=== PATIENT | male | born 1990 | race African-American/Black ===

== ENCOUNTER 2017-09-25 04:30 | Inpatient (IN) | payer MEDICARE ==
--- NOTE | 2017-09-25 05:01 | ED ---
General Adult HPI - General Source: patient, police, RN notes reviewed Mode of arrival: ambulatory Limitations: altered mental status <Jorden Barba - Last Filed: 09/25/17 06:35> <Jaden Pantoja - Last Filed: 09/25/17 10:02> - General Chief complaint: Psychiatric Symptoms Stated complaint: Petition Time Seen by Provider: 09/25/17 04:40 - History of Present Illness Initial comments: Patient is a pleasant 26-year-old male brought to the emergency department with police escort and petition. Patient was found walking on the freeway. Patient states he walked here from [place] a couple of days ago to give his grandmother flu medicine. Patient states he walked here and took an hour or 2 to get here. Patient states he was walking back home. Patient is unclear where he is at this point. Patient also previously told the officer that he flew here from [place]. Patient is unclear last time he bathed or ate food. Patient states he has not been on medication for around a year however is unclear why he was on a. Patient does not believe he has a history of psychiatric problems. Patient denies any history of head trauma. Patient denies any physical complaints. No hallucinations. No suicidal or homicidal thoughts. No drug use. No alcohol use. (Jorden Barba) - Related Data Home Medications Medication Instructions Recorded Confirmed No Known Home Medications [No 09/25/17 09/25/17 Known Home Medications] Allergies Allergy/AdvReac Type Severity Reaction Status Date / Time No Known Allergies Allergy Verified 09/25/17 07:58 Review of Systems ROS Other: All systems not noted in ROS Statement are negative. Constitutional: Denies: fever Eyes: Denies: eye pain ENT: Denies: ear pain Respiratory: Denies: cough Cardiovascular: Denies: chest pain Endocrine: Denies: fatigue Gastrointestinal: Denies: abdominal pain Genitourinary: Denies: dysuria Musculoskeletal: Denies: back pain Skin: Denies: rash Neurological: Denies: weakness <Jorden Barba - Last Filed: 09/25/17 06:35> ROS Other: All systems not noted in ROS Statement are negative. <Jaden Pantoja - Last Filed: 09/25/17 10:02> ROS Statement: Those systems with pertinent positive or pertinent negative responses have been documented in the HPI. Past Medical History Past Medical History: No Reported History History of Any Multi-Drug Resistant Organisms: None Reported Past Surgical History: Bowel Resection Past Psychological History: No Psychological Hx Reported Smoking Status: Current every day smoker Past Alcohol Use History: None Reported Past Drug Use History: None Reported <Jorden Barba - Last Filed: 09/25/17 06:35> General Exam Limitations: no limitations General appearance: alert, other (Poor hygiene) Head exam: Present: atraumatic Eye exam: Present: normal appearance, PERRL ENT exam: Present: normal oropharynx Neck exam: Present: normal inspection Respiratory exam: Present: normal lung sounds bilaterally Cardiovascular Exam: Present: regular rate, normal rhythm GI/Abdominal exam: Present: soft. Absent: tenderness Extremities exam: Present: normal inspection Neurological exam: Present: alert, altered, CN II-XII intact, normal gait. Absent: motor sensory deficit Expanded Patient oriented to: Present: person. Absent: place, time (Patient needs to look at the board and the room to determine day and year.) Cranial nerves: EOM's Intact: Normal Motor strength exam: RUE: 5, LUE: 5, RLE: 5, LLE: 5 Psychiatric exam: Present: normal affect, normal mood Skin exam: Present: normal color. Absent: rash <Jorden Barba - Last Filed: 09/25/17 06:35> Vital Signs 09/25/17 04:32 Temperature 97.5 F L Pulse Rate 109 H Respiratory 20 Rate Blood Pressure 124/76 O2 Sat by Pulse 99 Oximetry Medical Decision Making - Lab Data Result diagrams: 09/25/17 05:25 09/25/17 05:25 - Radiology Data Radiology results: report reviewed (Computed tomography scan of the brain shows no acute intercranial abnormality.) <Jorden Barba - Last Filed: 09/25/17 06:35> - Lab Data Result diagrams: 09/25/17 05:25 09/25/17 05:25 <Jaden Pantoja - Last Filed: 09/25/17 10:02> - Medical Decision Making 26 male the ER for psychiatric evaluation. Patient having acute psychosis, patient is seen and evaluated by psychiatry to be admitted for psychiatric evaluation and treatment (Jaden Pantoja) - Lab Data Lab Results 09/25/17 09/25/17 09/25/17 Range/Units 05:25 05:25 06:39 WBC 9.3 (3.8-10.6) k/uL RBC 4.91 (4.30-5.90) m/uL Hgb 15.4 (13.0-17.5) gm/dL Hct 47.0 (39.0-53.0) % MCV 95.7 (80.0-100.0) fL MCH 31.4 (25.0-35.0) pg MCHC 32.8 (31.0-37.0) g/dL RDW 13.4 (11.5-15.5) % Plt Count 207 (150-450) k/uL Neutrophils % 76 % Lymphocytes % 17 % Monocytes % 5 % Eosinophils % 1 % Basophils % 0 % Neutrophils # 7.1 (1.3-7.7) k/uL Lymphocytes # 1.6 (1.0-4.8) k/uL Monocytes # 0.4 (0-1.0) k/uL Eosinophils # 0.1 (0-0.7) k/uL Basophils # 0.0 (0-0.2) k/uL Sodium 146 H (137-145) mmol/L Potassium 4.0 (3.5-5.1) mmol/L Chloride 107 (98-107) mmol/L Carbon Dioxide 27 (22-30) mmol/L Anion Gap 12 mmol/L BUN 19 (9-20) mg/dL Creatinine 0.80 (0.66-1.25) mg/dL Est GFR (MDRD) Af Amer >60 (>60 ml/min/1.73 sqM) Est GFR (MDRD) Non-Af >60 (>60 ml/min/1.73 sqM) Glucose 90 (74-99) mg/dL Calcium 10.0 (8.4-10.2) mg/dL Total Bilirubin 0.9 (0.2-1.3) mg/dL AST 37 (17-59) U/L ALT 34 (21-72) U/L Alkaline Phosphatase 80 (38-126) U/L Total Protein 7.2 (6.3-8.2) g/dL Albumin 4.4 (3.5-5.0) g/dL Urine Color Yellow Urine Appearance Clear (Clear) Urine pH 6.0 (5.0-8.0) Ur Specific [place] 1.020 (1.001-1.035) Urine Protein Negative (Negative) Urine Glucose (UA) Negative (Negative) Urine Ketones Negative (Negative) Urine Blood Negative (Negative) Urine Nitrite Negative (Negative) Urine Bilirubin Negative (Negative) Urine Urobilinogen <2.0 (<2.0) mg/dL Ur Leukocyte Esterase Negative (Negative) Urine Opiates Screen Not Detected (NotDetected) Ur Oxycodone Screen Not Detected (NotDetected) Urine Methadone Screen Not Detected (NotDetected) Ur Propoxyphene Screen Not Detected (NotDetected) Ur Barbiturates Screen Not Detected (NotDetected) U Tricyclic Antidepress Not Detected (NotDetected) Ur Phencyclidine Scrn Not Detected (NotDetected) Ur Amphetamines Screen Not Detected (NotDetected) U Methamphetamines Scrn Not Detected (NotDetected) U Benzodiazepines Scrn Not Detected (NotDetected) Urine Cocaine Screen Not Detected (NotDetected) U Marijuana (THC) Screen Not Detected (NotDetected) Serum Alcohol <10 mg/dL Disposition <Jorden Barba - Last Filed: 09/25/17 06:35> <Jaden Pantoja - Last Filed: 09/25/17 10:02> Clinical Impression: Psychosis, Acute psychosis Disposition: TRANSFER TO PSYCH HOSP/UNIT Condition: Fair
[2017-09-25 05:37] LABS: Basophils % (A) 0 %; Eosinophils # (A) 0.1 k/uL (0-0.7); Eosinophils % (A) 1 %; HGB 15.4 gm/dL (13.0-17.5); Lymphocytes # (A) 1.6 k/uL (1.0-4.8); Lymphocytes % (A) 17 %; MCH 31.4 pg (25.0-35.0); MCHC 32.8 g/dL (31.0-37.0); MCV 95.7 fL (80.0-100.0); Mean Platelet Volume 7.4; Monocytes # (A) 0.4 k/uL (0-1.0); Monocytes % (A) 5 %; Neutrophils # (A) 7.1 k/uL (1.3-7.7); Neutrophils % (A) 76 %; Platelet Count 207 k/uL (150-450); RBC 4.91 m/uL (4.30-5.90); RDW 13.4 % (11.5-15.5); WBC 9.3 k/uL (3.8-10.6)
--- NOTE | 2017-09-25 05:51 | CT ---
EXAM: CT Head Without Intravenous Contrast CLINICAL HISTORY: Altered mental status TECHNIQUE: Axial computed tomography images of the head/brain without intravenous contrast. CTDI is 57.40 mGy and DLP is 909.40 mGy-cm. This CT exam was performed using one or more of the following dose reduction techniques: automated exposure control, adjustment of the mA and/or kV according to patient size, and/or use of iterative reconstruction technique. COMPARISON: No relevant prior studies available. FINDINGS: Brain: Unremarkable. No acute hemorrhage. Normal leyva-white differentiation. No significant mass effect. Ventricles: Unremarkable. No ventriculomegaly. Bones/joints: Unremarkable. No acute fracture. Soft tissues: Unremarkable. Sinuses: Unremarkable as visualized. No acute sinusitis. Mastoid air cells: Unremarkable. IMPRESSION: No acute intracranial abnormality.
[2017-09-25 05:53] LABS: Albumin 4.4 g/dL (3.5-5.0); Alcohol <10 mg/dL; Blood Urea Nitrogen 19 mg/dL (9-20); Chloride 107 mmol/L (98-107); Glucose 90 mg/dL (74-99); Sodium 146 mmol/L (137-145); Total Protein 7.2 g/dL (6.3-8.2)
[2017-09-25 05:57] LABS: Total Bilirubin 0.9 mg/dL (0.2-1.3)
[2017-09-25 05:58] LABS: ALT 34 U/L (21-72); AST 37 U/L (17-59); Alkaline Phosphatase 80 U/L (38-126); Anion Gap 12 mmol/L; Carbon Dioxide 27 mmol/L (22-30)
[2017-09-25 06:47] LABS: Appearance,Urine Clear (Clear); Bilirubin,Urine Negative (Negative); Blood,Urine Negative (Negative); Color,Urine Yellow; Glucose,Urine (UA) Negative (Negative); Ketones,Urine Negative (Negative); Leukocyte Esterase,Urine Negative (Negative); Nitrite,Urine Negative (Negative); Protein,Urine Negative (Negative); Urobilinogen,Urine <2.0 mg/dL (<2.0)
[2017-09-25 07:12] LABS: Amphetamine Screen,Urine Not Detected (NotDetected); Barbiturate Screen,Urine Not Detected (NotDetected); Benzodiazepines Screen,Urine Not Detected (NotDetected); Cocaine Screen,Urine Not Detected (NotDetected); Methadone Screen, Urine Not Detected (NotDetected); Opiate Screen,Urine Not Detected (NotDetected); Oxycodone Screen, Urine Not Detected (NotDetected); Phencyclidine Screen,Urine Not Detected (NotDetected); Tricyclic Antidepressant,Urine Not Detected (NotDetected); Urn Cannabinoid Scrn Not Detected (NotDetected)
[2017-09-25] MEDS ORDERED: MAG HYDROX/AL HYDROX/SIMETH 30 ML CUP PO PRN (11:11)
[2017-09-25] MEDS ORDERED: LORazepam 1 MG TAB PO PRN (11:11)
[2017-09-25] MEDS ORDERED: ACETAMINOPHEN TAB 325 MG TAB PO PRN (11:11)
[2017-09-25] MEDS ORDERED: ZIPRASIDONE 20 MG VIAL IM PRN (11:11)
[2017-09-25] MEDS ORDERED: MAGNESIUM HYDROXIDE 2,400 MG/10 ML CUP PO PRN (11:11)
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
[2017-09-25 19:50] LABS: Appearance,Urine Clear (Clear); Bilirubin,Urine Negative (Negative); Blood,Urine Negative (Negative); Color,Urine Yellow; Glucose,Urine (UA) Negative (Negative); Ketones,Urine Negative (Negative); Leukocyte Esterase,Urine Negative (Negative); Nitrite,Urine Negative (Negative); PH, Urine 5.5 (5.0-8.0); Protein,Urine Negative (Negative); Specific Gravity,Urine 1.027 (1.001-1.035); Urobilinogen,Urine <2.0 mg/dL (<2.0)
--- NOTE | 2017-09-26 09:07 | P.HP ---
Psychiatric H&P - . History & Physical: Allergies Allergy/AdvReac Type Severity Reaction Status Date / Time No Known Allergies Allergy Verified 09/25/17 11:36 Vital Signs Temp 98.1 F 09/26/17 06:58 Pulse 82 09/26/17 06:58 Resp 14 09/26/17 06:58 BP 93/48 09/26/17 06:58 Pulse Ox 98 09/25/17 10:38 Intake & Output 09/25/17 09/26/17 09/26/17 18:59 06:59 18:59 Weight 52.8 kg Laboratory Last Values WBC 9.3 k/uL (3.8-10.6) 09/25/17 05:25 RBC 4.91 m/uL (4.30-5.90) 09/25/17 05:25 Hgb 15.4 gm/dL (13.0-17.5) 09/25/17 05:25 Hct 47.0 % (39.0-53.0) 09/25/17 05:25 MCV 95.7 fL (80.0-100.0) 09/25/17 05:25 MCH 31.4 pg (25.0-35.0) 09/25/17 05:25 MCHC 32.8 g/dL (31.0-37.0) 09/25/17 05:25 RDW 13.4 % (11.5-15.5) 09/25/17 05:25 Plt Count 207 k/uL (150-450) 09/25/17 05:25 Neutrophils % 76 % 09/25/17 05:25 Lymphocytes % 17 % 09/25/17 05:25 Monocytes % 5 % 09/25/17 05:25 Eosinophils % 1 % 09/25/17 05:25 Basophils % 0 % 09/25/17 05:25 Neutrophils # 7.1 k/uL (1.3-7.7) 09/25/17 05:25 Lymphocytes # 1.6 k/uL (1.0-4.8) 09/25/17 05:25 Monocytes # 0.4 k/uL (0-1.0) 09/25/17 05:25 Eosinophils # 0.1 k/uL (0-0.7) 09/25/17 05:25 Basophils # 0.0 k/uL (0-0.2) 09/25/17 05:25 Sodium 146 mmol/L (137-145) H 09/25/17 05:25 Potassium 4.0 mmol/L (3.5-5.1) 09/25/17 05:25 Chloride 107 mmol/L (98-107) 09/25/17 05:25 Carbon Dioxide 27 mmol/L (22-30) 09/25/17 05:25 Anion Gap 12 mmol/L 09/25/17 05:25 BUN 19 mg/dL (9-20) 09/25/17 05:25 Creatinine 0.80 mg/dL (0.66-1.25) 09/25/17 05:25 Est GFR (MDRD) Af Amer >60 (>60 ml/min/1.73 sqM) 09/25/17 05:25 Est GFR (MDRD) Non-Af >60 (>60 ml/min/1.73 sqM) 09/25/17 05:25 Glucose 90 mg/dL (74-99) 09/25/17 05:25 Calcium 10.0 mg/dL (8.4-10.2) 09/25/17 05:25 Total Bilirubin 0.9 mg/dL (0.2-1.3) 09/25/17 05:25 AST 37 U/L (17-59) 09/25/17 05:25 ALT 34 U/L (21-72) 09/25/17 05:25 Alkaline Phosphatase 80 U/L (38-126) 09/25/17 05:25 Total Protein 7.2 g/dL (6.3-8.2) 09/25/17 05:25 Albumin 4.4 g/dL (3.5-5.0) 09/25/17 05:25 Triglycerides 138 mg/dL (<150) 09/25/17 05:25 Cholesterol 149 mg/dL (<200) 09/25/17 05:25 LDL Cholesterol, Calc 71 mg/dL (0-99) 09/25/17 05:25 HDL Cholesterol 50 mg/dL (40-60) 09/25/17 05:25 TSH 1.640 mIU/L (0.465-4.680) 09/25/17 05:25 Urine Color Yellow 09/25/17 19:00 Urine Appearance Clear (Clear) 09/25/17 19:00 Urine pH 5.5 (5.0-8.0) 09/25/17 19:00 Ur Specific [place] 1.027 (1.001-1.035) 09/25/17 19:00 Urine Protein Negative (Negative) 09/25/17 19:00 Urine Glucose (UA) Negative (Negative) 09/25/17 19:00 Urine Ketones Negative (Negative) 09/25/17 19:00 Urine Blood Negative (Negative) 09/25/17 19:00 Urine Nitrite Negative (Negative) 09/25/17 19:00 Urine Bilirubin Negative (Negative) 09/25/17 19:00 Urine Urobilinogen <2.0 mg/dL (<2.0) 09/25/17 19:00 Ur Leukocyte Esterase Negative (Negative) 09/25/17 19:00 Urine Opiates Screen Not Detected (NotDetected) 09/25/17 06:39 Ur Oxycodone Screen Not Detected (NotDetected) 09/25/17 06:39 Urine Methadone Screen Not Detected (NotDetected) 09/25/17 06:39 Ur Propoxyphene Screen Not Detected (NotDetected) 09/25/17 06:39 Ur Barbiturates Screen Not Detected (NotDetected) 09/25/17 06:39 U Tricyclic Antidepress Not Detected (NotDetected) 09/25/17 06:39 Ur Phencyclidine Scrn Not Detected (NotDetected) 09/25/17 06:39 Ur Amphetamines Screen Not Detected (NotDetected) 09/25/17 06:39 U Methamphetamines Scrn Not Detected (NotDetected) 09/25/17 06:39 U Benzodiazepines Scrn Not Detected (NotDetected) 09/25/17 06:39 Urine Cocaine Screen Not Detected (NotDetected) 09/25/17 06:39 U Marijuana (THC) Screen Not Detected (NotDetected) 09/25/17 06:39 Serum Alcohol <10 mg/dL 09/25/17 05:25 09/26/17 08:57 IDENTIFYING DATA: This patient is a 26-year-old -[place] male who was admitted to the mental health unit through the emergency room. HPI: The patient was admitted due to symptoms of acute psychosis he was petitioned by a secretary of police. The petition states "Jimmy was found walking on I name before in [facility]. He did not know where he was or how he got here. A computer check found an address in [place]-please check that addressed but no answer at [address]. They knock at another apartment but no answer. Later Jimmy said he just flew in from [place]." The patient is found in the dining room he follows me to an interview room. The patient is a very poor historian. He provides brief demographic information such as his name and age. It is unclear where he is residing but he does mention [place] and [place]. He is aware that he is in a hospital but cannot recall how he got here. Later he remembers that the police picked him up off of the freeway. He cannot describe how long he has been walking on the freeway, he states "I started where the white people live". He denies having any psychiatric symptoms as we review symptoms of psychosis and mood. PAST PSYCHIATRIC HISTORY: He denies any previous inpatient psychiatric care which is unlikely. He reports no history of suicide attempts. I reviewed several psychotropic medications and he states he had not tried any of them. PMH: None reported, his sodium was mildly elevated likely due to dehydration. ALLERGIES: NO KNOWN DRUG ALLERGIES MEDICATIONS: Unknown CHEMICAL DEPENDENCY HISTORY: Unknown, urine drug screen was negative FAMILY PSYCHIATRIC HISTORY: Information not available FAMILY CHEMICAL DEPENDENCY HISTORY: Unknown SOCIAL HISTORY: He is 26 years old he states he single and has no children. We believe he was residing in [place]. He indicates he is on disability because of his "family life". He states he has 3 brothers and 2 sisters. He reports graduating from [employer] but cannot describe what degree he returned. Again the patient is an invalid historian. MENTAL STATUS EXAM: The patient is a thin -[place] male. He is dressed in hospital attire. He has a disheveled appearance his hygiene is poor and he has a foul body odor. Eye contact is poor. He often appears distracted and for several minutes at a time will stare down at the floor. Speech can be spontaneous, he speaks with a lisp, speech is not always fluent. He maintains alertness throughout the interview and does not appear lethargic. He demonstrates thought blocking. I suspect he is experiencing auditory hallucinations. He will begin speaking but not to me out loud in a disorganized fashion. Thought process in general is disorganized. He demonstrates no verbal or physical aggressiveness. He maintains a flat affect with no change in expression. He demonstrates no abnormal involuntary movements. He is oriented to being in the hospital he was not oriented to the date or the name of our location. STRENGTHS/WEAKNESSES: Strengths: Disability income weaknesses: To be determined , it appears he is experiencing acute symptoms of psychosis at this time INTELLECTUAL FUNCTIONING: Presumed to be below average IMPRESSIONS: [] 1. Psychosis unspecified, rule out schizophrenia. PLAN: The patient has been admitted to the mental health unit for his safety. Because of his incapacity due to psychosis I completed a second clinical certificate. We will initiate Risperdal M tab 1 mg twice daily for acute symptoms of psychosis. We will attempt to contact friends or family for collateral information as he will allow. He has already been seen by internal medicine for routine history and physical exam. He will be seen by social work for a psychosocial assessment and to begin discharge planning. We will monitor him for safety, provide reality orientation when possible, and encourage his full participation in the milieu.
[2017-09-26] MEDS: risperiDONE ODT 1 MG TAB PO SCH ×2 (09:50→20:49)
[2017-09-26 13:30] LABS: Hemoglobin A1C 5.8 % (4.0-6.0)
[2017-09-27] MEDS: risperiDONE ODT 1 MG TAB PO SCH ×2 (09:36→21:04)
--- NOTE | 2017-09-27 19:40 | PN ---
PROGRESS NOTE DATE OF SERVICE: 09/27/2017. INTERVAL HISTORY: Patient is seen in cross-coverage today for Dr. Retana. He does seem to relate he is compliant with the medication. He does not seem to voice any adverse side effects. He, on mental status exam, is alert, overall cooperative. He does not respond to questions at times and the question needs to be repeated again. He denies any current auditory or visual hallucinations. He denies any thoughts of harm to self or others. His affect appears inappropriate times. He does not show any agitation. Thought processes seem to have some disorganization. His answers are very minimal. He appears to have some thought blocking at times. He does not show any agitation. PLAN AND RECOMMENDATIONS: The patient will be maintained on current psychotropic medication regimen, which is Risperdal M tab and Ativan p.r.n. and Geodon p.r.n. is ordered. Will monitor his response to the medication and monitor for any adverse side effects. Will continue to cover this patient for Dr. Retana through the weekend. MMODL / IJN: [id number] /
[2017-09-28] MEDS: risperiDONE ODT 1 MG TAB PO SCH ×2 (09:48→20:16)
--- NOTE | 2017-09-28 15:32 | PN ---
PROGRESS NOTE DATE OF SERVICE: 09/28/2017. INTERVAL HISTORY: Patient is seen in cross coverage today for Dr. Retana. He reports that his mood is doing all right. He is seems to relate he slept well last night, is eating well. He was found in the lounge watching a football game. On mental status exam, he is alert and cooperative with the interview. Eye contact is minimal. Answers are very brief. He denies any thoughts of harm to self or others. He denies any hallucinations. He does not show any current agitation and affect is restricted. PLAN: The patient will be maintained on Risperdal M tab as current. I will monitor his response and monitor for any medication side effects. Dr. Retana to resume care of this patient starting tomorrow. NAYELY / ALMAN: [id number] /
--- NOTE | 2017-09-29 08:53 | P.PN ---
Progress Note - Text Interval history: The patient is found in the dining room he follows me to an interview room he reports his mood is good. Progress notes from this weekend were reviewed. Again I tried to review the circumstances surrounding his admission but the patient continues to be only a partial historian. He states he was trying to walk on the "normal road but got turned around". He denies having any symptoms. He reports no contact with family or friends over the weekend. He has no questions regarding the Risperdal. Mental status exam: The patient is a thin -Maltese male appearing his stated age. He is dressed in hospital gowns. He is seated in the chair but frequently changes position. Throughout the interview he gestures as he is picking up things and arranging them on the table. When asked if he is experiencing auditory hallucinations he indicates he is not but has bizarre smiling during the time he is answering. He reports no suicidal or homicidal ideation. Thought process remains disorganized. He seems to still have a delusional thought content. He demonstrates no verbal or physical aggressiveness and in fact is directable during the session. He is oriented to person the date as the nd he names the month is February and the year is 2018. He is not sure of his current location. No abnormal involuntary movements observed. Plan: We will continue the Risperdal M tab 1 mg in the morning we will increase the bedtime dose to 2 mg. We will monitor him for safety and encourage his participation in the milieu. Vital signs reviewed. He requires continued psychiatric hospitalization
[2017-09-29] MEDS: risperiDONE ODT 1 MG TAB PO SCH (09:08)
[2017-09-29] MEDS: risperiDONE ODT 2 MG TAB PO SCH (20:26)
[2017-09-30] MEDS: risperiDONE ODT 1 MG TAB PO SCH (10:14)
--- NOTE | 2017-09-30 10:28 | P.PN ---
Progress Note - Text Interval history: The patient is found in group he follows me to an interview room. He was observed in group briefly seated quietly and then began laughing for no apparent reason. The patient reports his mood is okay he offers very little spontaneous speech today other than to say "I always end up in places like this or the police station,... The world is stalking me". He indicates he slept last night staff reported he slept 7 hours. He reports his appetite is been stable. He has been directable there has been no report of agitated behavior. Mental status exam: The patient is a disheveled -Malawian male he is dressed in hospital gowns. He has very limited eye contact. He has almost no spontaneous speech other than a few statements. In covering the psychiatric review of systems he denies having any symptoms. Insight and judgment are impaired. He demonstrates no verbal or physical aggressiveness during the meeting. He appears distracted he often looks down to the left. It is possible he is experiencing auditory hallucinations. He indicates he is having some paranoid/persecute oriented thinking with the above-noted statement. Plan: The patient will continue on his current medications we will consider titrating the Risperdal further. Vital signs reviewed. We will continue to monitor him for safety and encourage his participation in the milieu. We will provide reality orientation when possible.
[2017-09-30] MEDS: risperiDONE ODT 2 MG TAB PO SCH (20:16)
--- NOTE | 2017-10-01 09:03 | P.PN ---
Progress Note - Text Interval history: The patient is found in the hallway he follows me to an interview room. The patient indicates his mood is fine. He states he feels like he is "in another world". He makes other bizarre statements that are difficult to understand. He reports he slept last night however staff documented only 2 hours. He continues to struggle with ADLs. He has been compliant with the Risperdal and has no questions regarding the medication. Mental status exam: The patient is a disheveled -Bruneian male with poor hygiene grooming. He has a foul body odor. Eye contact is intermittent. He has little spontaneous speech she provides brief answers to questions asked. He continues to make bizarre statements indicating delusional thoughts. Thought process is not well organized. He is observed in the hallway singing out loud to himself area he demonstrates bizarre smiling and laughter during the conversation which does not fit the content of the conversation. Insight and judgment are poor. He demonstrates no verbal or physical aggressiveness. He demonstrates no abnormal involuntary movements. Plan: The patient will continue on the Risperdal we will increase the dose to 2 mg twice daily. We will continue to monitor him for safety and encourage participation in the milieu. Reality orientation is offered when possible.. The patient requires continued psychiatric hospitalization for his acute symptoms of psychosis and psychosocial dysfunction. vital signs reviewed.
[2017-10-01] MEDS: risperiDONE ODT 2 MG TAB PO SCH ×2 (09:21→20:56)
[2017-10-02] MEDS: risperiDONE ODT 2 MG TAB PO SCH ×2 (09:37→20:40)
--- NOTE | 2017-10-02 10:14 | P.PN ---
Progress Note - Text Interval history: The patient is found in group he follows me to an interview room. He again indicates his mood is fine. He provides no relevant information spontaneously. The first time he does indicate he is having auditory hallucinations but he will not describe the content of what he is hearing. At length we tried to discuss his past psychiatric treatment in terms of which clinic so that we may contact them for collateral information. As well we tried to identify any family member or friend that we could contact for collateral information. He was not able to contribute any relevant information. The patient continues to neglect his hygiene however he is eating. Mental status exam: The patient is a disheveled -Estonian male appearing his stated age. He has poor hygiene grooming with a continued foul body odor. Eye contact is poor. Speech can be difficult to understand at times due to mumbling. When asked to repeat himself he is more understandable. He does endorse auditory hallucinations he appears to continue experience disorganized symptoms of psychosis. Again he continues to have odd expressions of affect that are incongruent to the conversation. Insight and judgment are impaired. He demonstrates no verbal or physical aggressiveness. Plan: The patient will continue on his current medication. We will continue our efforts to identify sources of collateral information. Vital signs reviewed. We will monitor him for safety and encourage participation in the milieu.
[2017-10-03] MEDS: risperiDONE ODT 2 MG TAB PO SCH (09:29)
[2017-10-03] MEDS ORDERED: risperiDONE ODT 2 MG TAB PO STA (11:54)
--- NOTE | 2017-10-03 12:19 | PN ---
PROGRESS NOTE DATE OF SERVICE: 10/03/2017 CHIEF COMPLAINT: The patient was admitted. He was admitted for confusion, disorganized behavior, [place] with no awareness of his situation. He was admitted on petition for involuntary hospitalization. INTERVAL HISTORY: The patient continues to be quite psychotic. He wanders about the unit. He does not interact with others. He has odd expressions. He does not respond in any appropriate way to interactions with staff. He has attended some groups; one example of his response in a group was that he was seen to be bizarre, inappropriate, and responding to internal stimuli. When asked in group to share, he stated "I was a bad child when I grew up. I don't want to go to correction for it." Patient was laughing during the group at inappropriate times. Patient has not had change in his general health. He tolerates his psychotropic medications. MENTAL STATUS: Patient gave fair eye contact. He made random comments, though he did not say anything that was very meaningful. His affect was constricted. His mood seemingly elevated. It was difficult to say if he was distressed. He appeared to be responding to internal stimuli. ASSESSMENT: I will continue the current diagnosis and treatment plan. I will increase Risperdal to 3 mg 3 times a day. Patient continues to be flagrantly psychotic. Will continue to focus on stabilization and discharge planning. MMASHLEY / JOSETTE: [id number] /
[2017-10-03] MEDS: risperiDONE ODT 1 MG TAB PO SCH ×2 (17:21→20:28)
[2017-10-04] MEDS: risperiDONE ODT 1 MG TAB PO SCH ×3 (09:23→22:12)
[2017-10-04] MEDS: BENZTROPINE MESYLATE 1 MG TAB PO SCH ×2 (18:31→22:12)
[2017-10-04] MEDS: HALOPERIDOL 5 MG TAB PO SCH ×2 (18:31→22:12)
--- NOTE | 2017-10-04 19:08 | PN ---
PROGRESS NOTE DATE OF SERVICE: 10/04/2017. CHIEF COMPLAINT: The patient was admitted for confusion, psychosis, disorganized behavior [place] with no awareness of his situation. He was admitted on petition for involuntary hospitalization. INTERVAL HISTORY: The patient continues to do the same. He had a quiet evening last night. He slept fairly well. He keeps to himself. Mostly he wanders about the unit. He talks to himself persistently. There are times where he can get quite intense in some of his self talk. He will respond appropriately to staff. He will attend groups. One note in group is noteworthy as follows "the patient moving lips as though talking and laughing loudly without apparent reason." He has not had change in his general health. He tolerates his psychotropic medications. It is noteworthy that he is not showing any symptoms of EPS. MENTAL STATUS: Patient gave fair eye contact at best. He was saying some things under his breath as he came up to me. He did respond to few questions appropriately. He had an odd somewhat expansive affect. He smiled. His mood was elevated. He had an intense manner. He did not appear to be distressed. ASSESSMENT: I will continue the current diagnosis and treatment plan. I will start the patient on Haldol 5 mg twice a day along with Cogentin 1 mg twice a day. He also will continue Risperdal 3 mg 3 times a day. We will continue to focus on stabilization and discharge planning. NAYELY / JOSETTE: [id number] /
[2017-10-05] MEDS: risperiDONE ODT 1 MG TAB PO SCH ×3 (09:40→20:39)
[2017-10-05] MEDS: BENZTROPINE MESYLATE 1 MG TAB PO SCH ×2 (09:41→20:39)
[2017-10-05] MEDS: HALOPERIDOL 5 MG TAB PO SCH ×2 (09:41→20:39)
--- NOTE | 2017-10-05 13:06 | PN ---
PROGRESS NOTE DATE OF SERVICE: 10/05/2017. CHIEF COMPLAINT: The patient was admitted for confusion, psychosis, disorganized behavior [place] with no awareness of the situation. He was admitted on petition for involuntary hospitalization. INTERVAL HISTORY: The patient has been doing fair. He continues to do about the same. He wanders about the unit. He has been sleeping fair. He will attend some groups. Mostly he keeps to himself. He has a lot of self talk and responds to internal stimuli. Generally his mood seems to be in a reasonable range. He has not had change in his general health. He tolerates his psychotropic medications. MENTAL STATUS: Patient gave fair eye contact. He answered a few questions with brief responses. He also made some mumbling comments that were difficult to discern the meaning. His affect was a little constricted. His mood was quiet. He did not appear to be distressed. He continues with response to internal stimuli. ASSESSMENT: I will continue the current diagnosis and treatment plan. I will continue psychotropic medications the same. We will focus on addressing acute psychotic symptoms and focus on stabilization and discharge planning. NAYELY / JOSETTE: [id number] /
[2017-10-06] MEDS: risperiDONE ODT 1 MG TAB PO SCH ×3 (10:21→21:41)
[2017-10-06] MEDS: BENZTROPINE MESYLATE 1 MG TAB PO SCH ×2 (10:21→21:41)
[2017-10-06] MEDS: HALOPERIDOL 5 MG TAB PO SCH ×2 (10:21→21:41)
--- NOTE | 2017-10-06 10:43 | PN ---
PROGRESS NOTE DATE OF SERVICE: 10/06/2017 CHIEF COMPLAINT: The patient was admitted for confusion, psychosis, disorganized behavior [place] with no awareness of the situation. He was admitted on petition for involuntary hospitalization. INTERVAL HISTORY: Patient has been doing fair. He continues to be moderately active in his psychosis. He wanders. He has a lot of self talk. He has been cooperative. He takes his medications appropriately. He responds to staff when approached. Otherwise, he keeps to himself. He will attend some activities. He has not had change in his general health. He tolerates his psychotropic medications. MENTAL STATUS: Patient gave fair eye contact. He was a little restless. He answered a few questions appropriately. He made some disconnected comments. His affect was a little constricted though he smiled some. His mood was quiet. He did not appear to be distressed. ASSESSMENT: I will continue the current diagnosis and treatment plan. Continue psychotropic medications the same. I have added Haldol to his medical regimen. He is on Cogentin as well. He is not showing signs of EPS. Will continue to focus on stabilization and discharge planning. MMLOVEL / ALMAN: [id number] /
[2017-10-07] MEDS: BENZTROPINE MESYLATE 1 MG TAB PO SCH ×2 (09:30→20:13)
[2017-10-07] MEDS: risperiDONE ODT 1 MG TAB PO SCH ×2 (09:30→20:13)
[2017-10-07] MEDS: HALOPERIDOL 5 MG TAB PO SCH ×2 (09:30→20:13)
--- NOTE | 2017-10-07 12:13 | P.PN ---
Progress Note - Text Interval history: The patient is found in the hallway he follows me to an interview room. The patient's continues to display the same level of confusion. He demonstrates no aggressive behavior or agitation. He is observed ambulating the hallway stalking himself sometimes using profanity but again softly. He is not able to provide relevant history which would allow us to contact sources of collateral information. During treatment team meeting we discussed ways of trying to gather information to assist in discharge planning and assessing his baseline function. The patient has no questions or concerns regarding his medication. In my absence his Risperdal was titrated from 4 mg daily to 9 mg daily and Haldol was added 5 mg twice daily. Mental status exam: The patient is an alert -Zimbabwean male he is dressed in his own clothing. Hygiene is improved with his foul odor being less severe. He reports his mood is "fine". He denies having any symptoms. He denies having any suicidal or homicidal ideation intent or plan. He states his plan is to go back to [place] but he is unable to verbalize how he will accomplish that. He is unable to describe where he will live and who he will follow up with her mental health services. Again he cannot recall which clinic he was last seen at. He demonstrates no verbal or physical aggressiveness. Throughout the session he shakes his right leg causing his whole body to move. No tremor with outstretched hands. No abnormal facial movements. Plan: The patient will continue on his current medications however I will lower the Risperdal dose to 3 mg twice daily. We will continue working on discharge planning.
[2017-10-08] MEDS: risperiDONE ODT 1 MG TAB PO SCH ×2 (08:05→22:15)
[2017-10-08] MEDS: HALOPERIDOL 5 MG TAB PO SCH ×2 (08:05→22:16)
[2017-10-08] MEDS: BENZTROPINE MESYLATE 1 MG TAB PO SCH ×2 (08:05→22:15)
--- NOTE | 2017-10-08 10:26 | P.PN ---
Progress Note - Text Interval history: The patient is found in the hallway he follows me to an interview room. He indicates his mood is "fine". This is the same answer he provides each day. He is observed speaking to himself in the hallway demonstrating odd smiling and laughter. He continues to be directable on the unit he has not been demonstrating any aggressive behavior. He voices a desire to be discharged soon but still struggles in participating in discharge planning. He indicates today he thinks his mother's his guardian but does not have contact information for her. He has no questions or concerns regarding his medication. Mental status exam: The patient is alert he is dressed in his own clothing and hospital attire. He has a mildly disheveled appearance he continues to have a foul body odor. He indicates he is showering however his close appeared dirty. Eye contact is intermittent. He has little spontaneous speech but does provide answers to questions asked. Some of his speech is easy to understand and at times he mumbles and I have to ask him to repeat himself. He will make some tangential statements at times but he does not appear pressured in speech. Insight and judgment improving but limited. I suspect intellectually there is an intellectual disability. He is demonstrating no verbal or physical aggressiveness. He is oriented to person place and date. Plan: The patient will continue on his current psychotropic medications we will consider reducing the amount of antipsychotic medication he is on if possible. Vital signs reviewed. We will continue to monitor him for safety. We will continue to work on discharge planning as it is his intention to return to [place].
[2017-10-08 14:49] VITALS: BMI 21.3
[2017-10-09 07:14] VITALS: RESP 16
[2017-10-09] MEDS: BENZTROPINE MESYLATE 1 MG TAB PO SCH ×2 (08:38→21:13)
[2017-10-09] MEDS: risperiDONE ODT 1 MG TAB PO SCH ×2 (08:38→20:58)
[2017-10-09] MEDS: HALOPERIDOL 5 MG TAB PO SCH (08:38)
--- NOTE | 2017-10-09 11:08 | P.PN ---
Progress Note - Text Interval history: The patient is found in his room he follows me to an interview room. He indicates his mood is fine. He has no questions or concerns regarding his medications. He has been participating in the milieu to the best of his ability. Social work was able to contact the patient's mother for limited collateral information. The patient does appear to be stabilizing and we discussed a potential plan of discharging him tomorrow. Mental status exam: The patient is alert he is dressed in his own clothing he has a mildly disheveled appearance. He is seated calmly in his chair. He demonstrates no verbal or physical aggressiveness. He is endorsing no symptoms of psychosis although he is noted to talk to himself at times in the hallway. Affect is constricted reportedly he is demonstrating some appropriate range in groups. He denies having any suicidal or homicidal ideation intent or plan. He is oriented to person place and date. Insight and judgment slowly improving. Plan: The patient does appear to be approximating his baseline function. I will reduce the Haldol to see if he can be managed with the Risperdal alone. We will continue to monitor him for safety. We discussed a plan of having him take a taxi directly back to his residence after discharge tomorrow.
[2017-10-09] MEDS ORDERED: HALOPERIDOL 2 MG TAB PO SCH (21:00)
[2017-10-10 06:35] VITALS: BP 98/50; PULSE 75; TEMP 97.6
[2017-10-10] MEDS: BENZTROPINE MESYLATE 1 MG TAB PO SCH (09:05)
[2017-10-10] MEDS: risperiDONE ODT 1 MG TAB PO SCH (09:05)
--- NOTE | 2017-10-10 09:07 | P.DS ---
Providers Date of admission: 09/25/17 09:46 Expected date of discharge: 10/10/17 Attending physician: Luis Retana Consults: 09/25/17 11:11 Consult Physician Routine Consulting Provider: Katalina Lopes Consult Reason/Comments: H and P Do you want consulting provider notified?: Yes Primary care physician: Stated None - Discharge Diagnosis(es) (1) Schizophrenia Current Visit: Yes Status: Acute Priority: High (2) Intellectual disability Current Visit: Yes Status: Acute Priority: High Hospital Course: This patient is a 26-year-old single male who was admitted to the mental health unit through the emergency room for acute symptoms of psychosis. The patient was petition by law enforcement as he was found walking on a highway. The patient presented as a poor historian he demonstrated disorganized thought process and he was observed responding to presumed auditory hallucinations. His hygiene and grooming were poor and he was demonstrating poor self-care. For full details please refer to my psychiatric evaluation dated 09/26/2017. Summary of hospital course: The patient was admitted to the mental health unit on a petition and clinical certificate. A second clinical certificate was completed a deferral conference was held and the patient deferred a court hearing. He was started on Risperdal which was titrated during the course of this stay. In my absence a covering colleague increase the Risperdal further and added Haldol. During the course of the hospitalization the patient's level of psychosis did decrease and he became cooperative and directable on the mental health unit. I felt he did not need to antipsychotics so the Haldol was tapered off and the Risperdal was lowered to its current dose of 3 mg twice a day. The patient was placed on Cogentin. We were able to contact the patient' s mother and the patient will return to her residence. We will arrange transportation to the [place] area. Social work is in the process of arranging outpatient mental health follow-up. The patient appears to have symptoms at baseline but his symptoms of psychosis are improved he is able to participate in conversation and he is demonstrating no verbal or physical aggressiveness. Mental status exam: The patient is an alert 26-year-old -Spanish male. Hygiene and grooming are improved. Eye contact is appropriate. Speech is fluent spontaneous at times but mainly he provides brief answers to questions asked. He demonstrates no verbal or physical aggressiveness. He reports his mood is "fine". Affect is constricted. He previously reported auditory hallucinations but now states that they are gone he is endorsing no visual hallucinations. He reports feeling safe and endorses no specific paranoid or persecutory thinking. He remains oriented to person place and date. He reports having no suicidal or homicidal ideation intent or plan. Impressions 1. Schizophrenia, intellectual disability Plan: The patient is being discharged from the mental health unit today to return to the [place] area residing with his mother. We will assist in providing transportation. Social work will arrange outpatient mental health follow-up for him closer to his home. He will continue on Risperdal 3 mg twice daily. He will also continue on Cogentin 1 mg twice daily. There is no imminent safety risk he is appropriate for discharge from the mental health unit for transition to outpatient care. He is instructed to return to the mental health unit with any acute safety concerns. His urine drug screen was negative upon presentation he is encouraged to continue abstaining from any alcohol marijuana or any illicit drug use. Patient Condition at Discharge: Stable Plan - Discharge Summary Discharge Rx Participant: No New Discharge Prescriptions: New Benztropine Mesylate [Cogentin] 1 mg PO BID #60 tab Discharge Medication List Benztropine Mesylate [Cogentin] 1 mg PO BID #60 tab 10/10/17 [Rx] Follow up Appointment(s)/Referral(s): intake,intake [Other] - 1 Week Patient Instructions/Handouts: Brief Psychotic Disorder (GEN) Activity/Diet/Wound Care/Special Instructions: Activity and diet as tolerated. Avoid the use of street drugs and alcohol. Take all medications as prescribed. When you are in need of refills on your medications please contact your medical provider and/or outpatient psychiatrist to have this done. Please go to scheduled outpatient appointment for aftercare treatment. If symptoms return or become worse call the crisis line at and/or go to the nearest emergency room for an evaluation.
== END 2017-10-10 14:23 | disposition home or self-care (01) | DRG 885 ==
LOC: EC 04:30 → 3MHU 09:46
PROVIDERS: ADMIT Psychiatry & Neurology Psychiatry; ATTEND Psychiatry & Neurology Psychiatry
DX: F20.9 Schizophrenia, unspecified (principal); E87.0 Hyperosmolality and hypernatremia; E86.0 Dehydration; F17.200 Nicotine dependence, unspecified, uncomplicated; F79 Unspecified intellectual disabilities; L84 Corns and callosities; R45.1 Restlessness and agitation; Z79.899 Other long term (current) drug therapy; Z71.6 Tobacco abuse counseling; Z91.83 Wandering in diseases classified elsewhere
CPT/HCPCS: 36415; 70450; 80053; 80061; 80306; 80320; 81003; 83036; 84443; 85025; 99285

== ENCOUNTER 2018-04-30 21:05 | Emergency (ER) | payer MEDICARE ==
[2018-04-30] MEDS ORDERED: SODIUM CHLORIDE 0.9% 1,000 ML IV ONE (21:11)
[2018-04-30 21:35] LABS: Appearance,Urine Clear (Clear); Bilirubin,Urine Negative (Negative); Blood,Urine Negative (Negative); Color,Urine Yellow; Glucose,Urine (UA) Negative (Negative); Ketones,Urine Trace (Negative); Leukocyte Esterase,Urine Negative (Negative); Nitrite,Urine Negative (Negative); Protein,Urine Negative (Negative); Specific Gravity,Urine 1.021 (1.001-1.035); Urobilinogen,Urine <2.0 mg/dL (<2.0)
[2018-04-30 21:44] LABS: HGB 15.8 gm/dL (13.0-17.5); MCH 30.7 pg (25.0-35.0); MCHC 31.6 g/dL (31.0-37.0); MCV 97.1 fL (80.0-100.0); Mean Platelet Volume 6.9; Platelet Count 232 k/uL (150-450); RBC 5.15 m/uL (4.30-5.90); RDW 13.2 % (11.5-15.5); WBC 3.6 k/uL (3.8-10.6)
[2018-04-30 21:45] LABS: Partial Thromboplastin Time 25.5 sec (22.0-30.0); Prothrombin Time 10.1 sec (9.0-12.0)
[2018-04-30 21:53] LABS: ALT 24 U/L (21-72); AST 46 U/L (17-59); Albumin 4.2 g/dL (3.5-5.0); Alcohol <10 mg/dL; Alkaline Phosphatase 90 U/L (38-126); Anion Gap 8 mmol/L; Blood Urea Nitrogen 16 mg/dL (9-20); Calcium 9.1 mg/dL (8.4-10.2); Carbon Dioxide 22 mmol/L (22-30); Chloride 109 mmol/L (98-107); Glucose 76 mg/dL (74-99); Potassium 3.9 mmol/L (3.5-5.1); Sodium 139 mmol/L (137-145); Total Bilirubin 1.3 mg/dL (0.2-1.3); Total Protein 7.1 g/dL (6.3-8.2)
[2018-04-30 21:56] LABS: Creatine Kinase 667 U/L (55-170)
[2018-04-30 21:59] LABS: Amphetamine Screen,Urine Not Detected (NotDetected); Barbiturate Screen,Urine Not Detected (NotDetected); Benzodiazepines Screen,Urine Not Detected (NotDetected); Cocaine Screen,Urine Not Detected (NotDetected); Methadone Screen, Urine Not Detected (NotDetected); Opiate Screen,Urine Not Detected (NotDetected); Oxycodone Screen, Urine Not Detected (NotDetected); Phencyclidine Screen,Urine Not Detected (NotDetected); Tricyclic Antidepressant,Urine Not Detected (NotDetected); Urn Cannabinoid Scrn Not Detected (NotDetected)
--- NOTE | 2018-04-30 22:06 | CT ---
EXAMINATION TYPE: CT brain wo con DATE OF EXAM: 04/30/2018 COMPARISON: 09/25/2017 HISTORY: Altered mental status. CT DLP: 796 mGycm. Automated Exposure Control for Dose Reduction was Utilized. TECHNIQUE: CT scan of the head is performed without contrast. FINDINGS: The ventricles and sulci appear normal. There is no mass effect nor midline shift. There is no sign of intracranial hemorrhage. The calvarium is intact. IMPRESSION: Negative CT scan of the brain. No change.
[2018-04-30 22:07] LABS: Troponin I <0.012 ng/mL (0.000-0.034)
--- NOTE | 2018-04-30 22:07 | XR ---
EXAMINATION TYPE: XR chest 2V DATE OF EXAM: 04/30/2018 COMPARISON: NONE HISTORY: Weakness TECHNIQUE: Frontal and lateral views of the chest are obtained. FINDINGS: Heart and mediastinum are normal. Lungs are clear. Diaphragm is normal. Bony thorax appear s normal. IMPRESSION: Normal chest
[2018-04-30 22:16] LABS: Creatine Kinase MB 6.7 ng/mL (0.0-2.4)
[2018-05-01] MEDS ORDERED: SODIUM CHLORIDE 0.9% 1,000 ML IV ONE (00:10)
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
[2018-05-01 06:50] VITALS: BP 110/70; PULSE 78; RESP 17; TEMP 98.2
== END 2018-05-01 06:50 | disposition home or self-care (01) ==
LOC: EC 21:05
DX: F20.9 Schizophrenia, unspecified (principal); F17.200 Nicotine dependence, unspecified, uncomplicated
CPT/HCPCS: 36415; 70450; 71046; 80053; 80306; 80320; 81003; 82550; 82553; 84484; 85025; 85610; 85730; 96360; 96361; 99285